=== PATIENT | male | born 1990 | race Caucasian/White ===

== ENCOUNTER 2023-09-22 23:57 | Emergency (ER) | payer OTHER ==
[~2023-09-22] VITALS: Ht 177.8 cm; Wt 81.6 kg
[2023-09-23 00:30] VITALS: BP_SYST 142; PULSE 104; RESP 16; TEMP 98.5; O2SAT 96
[2023-09-23] MEDS: AZITHROMYCIN 250 MG TABLET PO ONE (02:07)
[2023-09-23] MEDS: cefTRIAXone 1 GM in LIDOCAINE 1%, 20 ML MDV 2.1 ML IM ONE (02:23)
[2023-09-23] MEDS ORDERED: CIPR500T5 PO (02:55)
[2023-09-23 03:03] VITALS: BP_SYST 137; PULSE 91; RESP 16; TEMP 98.4; O2SAT 98
== END 2023-09-23 03:00 | disposition home or self-care (01) ==
LOC: SED 23:57
DX: N48.5 Ulcer of penis (principal); Z79.899 Other long term (current) drug therapy
CPT/HCPCS: 99283; 87070; 96372; J0696; Q0144; J2001